=== PATIENT | male | born 1965 | race Caucasian/White ===

== ENCOUNTER 2017-10-16 16:56 | Emergency (ER) | payer MEDICARE, BC ==
[~2017-10-16] VITALS: Ht 190.5 cm; Wt 138.6 kg
[~2017-10-16 16:56] MED LIST: HYDR-565 PO; PER10325T PO
[2017-10-16 17:15] VITALS: BP 143/92
[2017-10-16 18:02] LABS: BASOPHILS # (AUTO) 0.1 X10'3 (0-0.2); BASOPHILS % (AUTO) 0.7 % (0-1); EOSINOPHILS # (AUTO) 0.2 X10'3 (0-0.9); EOSINOPHILS % (AUTO) 1.8 % (0-6); HEMATOCRIT 46.9 % (42.0-52.0); HEMOGLOBIN 15.8 g/dl (14.0-17.9); LYMPHOCYTES # (AUTO) 2.7 X10'3 (1.1-4.8); LYMPHOCYTES % (AUTO) 29.4 % (21-51); MEAN CORPUSCULAR HEMOGLOBIN 32.3 PG (27.0-31.0); MEAN CORPUSCULAR HGB CONC 33.8 % (33.0-36.5); MEAN CORPUSCULAR VOLUME 95.6 FL (78-98); MEAN PLATELET VOLUME 9.2 FL (7.4-10.4); MONOCYTES # (AUTO) 0.5 X10'3 (0-0.9); MONOCYTES % (AUTO) 5.9 % (2-12); NEUTROPHILS # (AUTO) 5.7 X10'3 (1.8-7.7); NEUTROPHILS % (AUTO) 62.2 % (42-75); PLATELET COUNT 216 X10'3 (140-440); RED BLOOD COUNT 4.91 X10'6 (4.70-6.10); RED CELL DISTRIBUTION WIDTH 12.6 % (11.5-14.5); WHITE BLOOD COUNT 9.1 X10'3 (4.5-11.0)
[2017-10-16 18:28] LABS: ALANINE AMINOTRANSFERASE 61 U/L (12-78); ALBUMIN 4.6 G/DL (3.4-5.0); ALBUMIN/GLOBULIN RATIO 1.3 (1.1-1.5); ALKALINE PHOSPHATASE 54 IU/L (46-116); ANION GAP 14 (8-16); ASPARTATE AMINO TRANSFERASE 31 U/L (10-37); BILIRUBIN,TOTAL 0.5 MG/DL (0.1-1.0); BLOOD UREA NITROGEN 8 MG/DL (7-18); BUN/CREATININE RATIO 6.6 (5.4-32.0); CALCIUM 9.9 MG/DL (8.5-10.1); CHLORIDE 100 MMOL/L (99-107); CREATININE 1.21 MG/DL (0.60-1.10); GLUCOSE 120 MG/DL (70-104); SODIUM 138 MMOL/L (135-145); TOTAL CARBON DIOXIDE 23.9 MMOL/L (24-32); TOTAL PROTEIN 8.2 G/DL (6.4-8.2); eGFR 63 ML/MIN
== END 2017-10-16 19:04 | disposition home or self-care (01) ==
LOC: ER 16:57
DX: R19.7 Diarrhea, unspecified (principal); R25.1 Tremor, unspecified; I25.10 Atherosclerotic heart disease of native coronary artery without angina pectoris; G89.29 Other chronic pain; Z88.2 Allergy status to sulfonamides; Z95.5 Presence of coronary angioplasty implant and graft
CPT/HCPCS: 36415; 71045; 80053; 85025; 90471; 99285

== ENCOUNTER 2019-07-08 06:31 | Emergency (ER) | payer MEDICARE, BC ==
[~2019-07-08] VITALS: Ht 193 cm; Wt 125.0 kg
[~2019-07-08 06:31] MED LIST changes: +HYDR-4353 PO; -HYDR-565 PO; -PER10325T PO
[2019-07-08] MEDS ORDERED: morphine 2 MG/ML inj. syringe IV PRN (07:25)
[2019-07-08] MEDS ORDERED: normal saline 1000ML IV soln IVB ONE (07:25)
[2019-07-08] MEDS ORDERED: ketorolac tromethamine 15mg/ml inj. IV ONE (07:25)
[2019-07-08 07:27] LABS: CLARITY,URINE CLEAR (Clear); COLOR,URINE YELLOW (Yellow); GLUCOSE, URINE NEGATIVE (Neg); KETONES,URINE NEGATIVE (Neg); LEUKOCYTE ESTERASE ,URINE NEGATIVE (Neg); NITRITES, URINE NEGATIVE (Neg); OCCULT BLOOD,URINE NEGATIVE (Neg); PROTEIN,URINE NEGATIVE (Neg); UA COLLECTION TYPE CLN CATCH MIDSTREAM; UROBILINOGEN,URINE 0.2 E.U/dL (0.2-1.0)
[2019-07-08 07:54] LABS: BASOPHILS % (AUTO) 0.7 % (0-1); EOSINOPHILS # (AUTO) 0.2 X10'3 (0-0.9); EOSINOPHILS % (AUTO) 2.7 % (0-6); HEMATOCRIT 42.3 % (42.0-52.0); HEMOGLOBIN 14.5 g/dl (14.0-17.9); LYMPHOCYTES # (AUTO) 2.6 X10'3 (1.1-4.8); LYMPHOCYTES % (AUTO) 41.5 % (21-51); MEAN CORPUSCULAR HEMOGLOBIN 32.5 PG (27.0-31.0); MEAN CORPUSCULAR HGB CONC 34.4 g/dL (33.0-36.5); MEAN CORPUSCULAR VOLUME 94.6 FL (78-98); MEAN PLATELET VOLUME 10.8 FL (7.4-10.4); MONOCYTES # (AUTO) 0.6 X10'3 (0-0.9); NEUTROPHILS # (AUTO) 2.8 X10'3 (1.8-7.7); NEUTROPHILS % (AUTO) 45.1 % (42-75); PLATELET COUNT 152 X10'3 (140-440); RED BLOOD COUNT 4.47 X10'6 (4.70-6.10); RED CELL DISTRIBUTION WIDTH 12.7 % (11.5-14.5); WHITE BLOOD COUNT 6.2 X10'3 (4.5-11.0)
[2019-07-08 08:16] LABS: ALANINE AMINOTRANSFERASE 32 U/L (12-78); ALBUMIN 4.2 G/DL (3.4-5.0); ALBUMIN/GLOBULIN RATIO 1.3 (1.1-1.5); ALKALINE PHOSPHATASE 39 IU/L (46-116); ANION GAP 13 (8-16); ASPARTATE AMINO TRANSFERASE 18 U/L (10-37); BILIRUBIN,TOTAL 0.3 MG/DL (0.1-1.0); BLOOD UREA NITROGEN 11 MG/DL (7-18); CALCIUM 9.1 MG/DL (8.5-10.1); CHLORIDE 107 MMOL/L (99-107); CHOL/HDL RATIO 3.6 (0.00-4.99); CHOLESTEROL 125 MG/DL (0-200); GLUCOSE 116 MG/DL (70-104); HDL CHOLESTEROL 35 MG/DL (35-60); LDL CHOLESTEROL 74 MG/DL (50-100); LIPASE 119 U/L (73-393); POTASSIUM 3.6 MMOL/L (3.5-5.1); SODIUM 142 MMOL/L (135-145); TOTAL CARBON DIOXIDE 22.2 MMOL/L (24-32); TOTAL PROTEIN 7.4 G/DL (6.4-8.2); TRIGLYCERIDES 113 MG/DL (20-135); eGFR 78 ML/MIN
[2019-07-08 08:50] VITALS: BP 173/111
== END 2019-07-08 08:51 | disposition home or self-care (01) ==
LOC: ER 06:31
DX: R10.9 Unspecified abdominal pain (principal); I25.10 Atherosclerotic heart disease of native coronary artery without angina pectoris; G89.29 Other chronic pain; Z95.5 Presence of coronary angioplasty implant and graft; Z88.2 Allergy status to sulfonamides
CPT/HCPCS: 74018; 80053; 80061; 81003; 83690; 83718; 85025; 99284; J7030

== ENCOUNTER 2019-07-10 07:06 | Emergency (ER) | payer MEDICARE, BC ==
[~2019-07-10] VITALS: Ht 193 cm; Wt 126.3 kg
[2019-07-10 09:26] VITALS: BP 119/70
== END 2019-07-10 09:28 | disposition home or self-care (01) ==
LOC: ER 07:07
DX: R10.11 Right upper quadrant pain (principal); G89.29 Other chronic pain; I25.10 Atherosclerotic heart disease of native coronary artery without angina pectoris; Z88.2 Allergy status to sulfonamides; Z79.899 Other long term (current) drug therapy; Z87.19 Personal history of other diseases of the digestive system; Z95.5 Presence of coronary angioplasty implant and graft
CPT/HCPCS: 74176; 99284

== ENCOUNTER 2022-02-16 05:25 | Emergency (ER) | payer MEDICARE, BC ==
[~2022-02-16] VITALS: Ht 193 cm; Wt 131.8 kg
[2022-02-16 05:28] VITALS: BP 135/87
== END 2022-02-16 10:11 | disposition left against medical advice (07) ==
LOC: ER 05:25
DX: R05.9 Cough, unspecified (principal); Z53.21 Procedure and treatment not carried out due to patient leaving prior to being seen by health care provider

== ENCOUNTER 2023-04-08 08:50 | Emergency (ER) | payer MEDICARE, BC ==
[~2023-04-08] VITALS: Ht 193 cm; Wt 136.4 kg
[2023-04-08 08:53] VITALS: BP 184/100
[2023-04-08] MEDS ORDERED: ketorolac trometh inj. 60 MG/2 ML VIAL IM ONE (09:45)
[2023-04-08] MEDS ORDERED: oxyCODONE IR 5mg (immed. release) tablet PO ONE (09:45)
[2023-04-08] MEDS ORDERED: LIDOcaine 1% W/epiNEPHrine 1:100,000 20ml vial IJ ONE (10:05)
== END 2023-04-08 13:39 | disposition home or self-care (01) ==
LOC: ER 08:50
DX: S52.592A Other fractures of lower end of left radius, initial encounter for closed fracture (principal); I51.9 Heart disease, unspecified; G89.29 Other chronic pain; M54.9 Dorsalgia, unspecified; Z88.2 Allergy status to sulfonamides; Z79.899 Other long term (current) drug therapy; W01.0XXA Fall on same level from slipping, tripping and stumbling without subsequent striking against object, initial encounter; Y93.89 Activity, other specified; Y92.89 Other specified places as the place of occurrence of the external cause; Y99.8 Other external cause status
CPT/HCPCS: 25605; 73100; 73110; 96372; 99284; J1885; A4565; A6449